=== PATIENT | female | born 1960 | race Native Hawaiian/Other Pacific Islander ===

== ENCOUNTER 2021-01-23 10:37 | Outpatient (CLI) | payer OTHER | END 2021-01-23 19:36 | disposition home or self-care (01) | LOC: MAMMO 10:37 | PROVIDERS: ATTEND Specialist | DX: N63.20 Unspecified lump in the left breast, unspecified quadrant (principal) | CPT/HCPCS: G0279 ==

== ENCOUNTER 2021-02-04 12:09 | Outpatient (CLI) | payer OTHER ==
[2021-02-04 12:36] LABS: PLATELET COUNT 251 K/uL (152-353)
[2021-02-04 12:42] LABS: POTASSIUM 3.4 mmol/L (3.6-5.2)
== END 2021-02-04 19:23 | disposition home or self-care (01) ==
LOC: LABW 12:09
PROVIDERS: ATTEND Internal Medicine Hematology & Oncology
DX: Z51.11 Encounter for antineoplastic chemotherapy (principal); C51.9 Malignant neoplasm of vulva, unspecified
CPT/HCPCS: 36415; 80053; 83735; 85027

== ENCOUNTER 2021-02-11 13:40 | Outpatient (CLI) | payer OTHER ==
[2021-02-11 13:58] LABS: PLATELET COUNT 240 K/uL (152-353)
== END 2021-02-11 22:17 | disposition home or self-care (01) ==
LOC: LABW 13:40
PROVIDERS: ATTEND Internal Medicine Hematology & Oncology
DX: Z51.11 Encounter for antineoplastic chemotherapy (principal); C51.9 Malignant neoplasm of vulva, unspecified
CPT/HCPCS: 36415; 80053; 83735; 85027

== ENCOUNTER 2021-02-18 12:33 | Outpatient (CLI) | payer OTHER ==
[2021-02-18 13:17] LABS: PLATELET COUNT 152 K/uL (152-353)
[2021-02-18 13:39] LABS: POTASSIUM 3.1 mmol/L (3.6-5.2)
== END 2021-02-18 20:49 | disposition home or self-care (01) ==
LOC: LABW 12:33
PROVIDERS: ATTEND Internal Medicine Hematology & Oncology
DX: Z51.11 Encounter for antineoplastic chemotherapy (principal); C51.9 Malignant neoplasm of vulva, unspecified
CPT/HCPCS: 80053; 83735; 85027

== ENCOUNTER 2021-02-25 14:08 | Outpatient (CLI) | payer OTHER ==
[2021-02-25 14:20] LABS: PLATELET COUNT 127 K/uL (152-353)
[2021-02-25 14:36] LABS: POTASSIUM 2.9 mmol/L (3.6-5.2)
== END 2021-02-25 21:40 | disposition home or self-care (01) ==
LOC: LABW 14:08
PROVIDERS: ATTEND Internal Medicine Hematology & Oncology
DX: Z51.11 Encounter for antineoplastic chemotherapy (principal); C51.9 Malignant neoplasm of vulva, unspecified
CPT/HCPCS: 36415; 80053; 83735; 85027

== ENCOUNTER 2021-03-04 14:14 | Outpatient (CLI) | payer OTHER ==
[2021-03-04 14:41] LABS: PLATELET COUNT 162 K/uL (152-353)
== END 2021-03-04 19:27 | disposition home or self-care (01) ==
LOC: LABW 14:14
PROVIDERS: ATTEND Internal Medicine Hematology & Oncology
DX: Z51.11 Encounter for antineoplastic chemotherapy (principal); C51.9 Malignant neoplasm of vulva, unspecified
CPT/HCPCS: 36415; 80053; 83735; 85027

== ENCOUNTER 2021-03-11 13:32 | Outpatient (CLI) | payer OTHER ==
[2021-03-11 13:45] LABS: PLATELET COUNT 164 K/uL (152-353)
[2021-03-11 14:26] LABS: POTASSIUM 2.7 mmol/L (3.6-5.2)
== END 2021-03-11 20:51 | disposition home or self-care (01) ==
LOC: LABW 13:32
PROVIDERS: ATTEND Internal Medicine Hematology & Oncology
DX: Z51.11 Encounter for antineoplastic chemotherapy (principal); C51.9 Malignant neoplasm of vulva, unspecified
CPT/HCPCS: 36415; 80053; 83735; 85027

== ENCOUNTER 2021-03-18 13:32 | Outpatient (CLI) | payer OTHER ==
[2021-03-18 14:03] LABS: PLATELET COUNT 129 K/uL (152-353)
[2021-03-18 14:25] LABS: POTASSIUM 4.1 mmol/L (3.6-5.2)
== END 2021-03-18 19:50 | disposition home or self-care (01) ==
LOC: LABW 13:32
PROVIDERS: ATTEND Internal Medicine Hematology & Oncology
DX: Z51.11 Encounter for antineoplastic chemotherapy (principal); C51.9 Malignant neoplasm of vulva, unspecified
CPT/HCPCS: 36415; 80053; 83735; 85027

== ENCOUNTER 2021-03-25 13:43 | Outpatient (CLI) | payer OTHER ==
[2021-03-25 13:58] LABS: PLATELET COUNT 123 K/uL (152-353)
[2021-03-25 14:07] LABS: POTASSIUM 3.5 mmol/L (3.6-5.2)
== END 2021-03-25 22:30 | disposition home or self-care (01) ==
LOC: LABW 13:43
PROVIDERS: ATTEND Internal Medicine Hematology & Oncology
DX: Z51.11 Encounter for antineoplastic chemotherapy (principal); C51.9 Malignant neoplasm of vulva, unspecified
CPT/HCPCS: 36415; 80053; 83735; 85027

== ENCOUNTER 2021-04-01 12:07 | Outpatient (CLI) | payer OTHER ==
[2021-04-01 12:49] LABS: PLATELET COUNT 132 K/uL (152-353)
[2021-04-01 13:37] LABS: POTASSIUM 3.2 mmol/L (3.6-5.2)
== END 2021-04-01 19:38 | disposition home or self-care (01) ==
LOC: LABW 12:07
PROVIDERS: ATTEND Internal Medicine Hematology & Oncology
DX: Z51.11 Encounter for antineoplastic chemotherapy (principal); C51.9 Malignant neoplasm of vulva, unspecified
CPT/HCPCS: 36415; 80053; 83735; 85027

== ENCOUNTER 2021-04-09 14:23 | Outpatient (CLI) | payer OTHER ==
[2021-04-09 14:58] LABS: POTASSIUM 3.1 mmol/L (3.6-5.2)
[2021-04-09 15:17] LABS: PLATELET COUNT 183 K/uL (152-353)
== END 2021-04-09 22:05 | disposition home or self-care (01) ==
LOC: LABW 14:23
PROVIDERS: ATTEND Internal Medicine Hematology & Oncology
DX: Z51.11 Encounter for antineoplastic chemotherapy (principal); C51.9 Malignant neoplasm of vulva, unspecified
CPT/HCPCS: 36415; 80053; 83735; 85027

== ENCOUNTER 2021-04-15 13:39 | Outpatient (CLI) | payer OTHER ==
[2021-04-15 13:51] LABS: PLATELET COUNT 286 K/uL (152-353)
[2021-04-15 14:03] LABS: POTASSIUM 2.7 mmol/L (3.6-5.2)
== END 2021-04-15 19:56 | disposition home or self-care (01) ==
LOC: LABW 13:39
PROVIDERS: ATTEND Internal Medicine Hematology & Oncology
DX: Z51.11 Encounter for antineoplastic chemotherapy (principal); C51.9 Malignant neoplasm of vulva, unspecified
CPT/HCPCS: 36415; 80053; 83735; 85027

== ENCOUNTER 2021-04-19 10:50 | Outpatient (CLI) | payer OTHER | END 2021-04-19 22:19 | disposition home or self-care (01) | LOC: CT 10:50 | PROVIDERS: ATTEND Internal Medicine Hematology & Oncology | DX: C51.9 Malignant neoplasm of vulva, unspecified (principal) | CPT/HCPCS: 36415; 82565; 84520; Q9963 ==

== ENCOUNTER 2021-04-22 11:16 | Outpatient (CLI) | payer OTHER ==
[2021-04-22 11:35] LABS: PLATELET COUNT 249 K/uL (152-353)
[2021-04-22 11:56] LABS: POTASSIUM 3.4 mmol/L (3.6-5.2)
== END 2021-04-22 21:00 | disposition home or self-care (01) ==
LOC: LABW 11:16
PROVIDERS: ATTEND Internal Medicine Hematology & Oncology
DX: C51.9 Malignant neoplasm of vulva, unspecified (principal); Z51.11 Encounter for antineoplastic chemotherapy
CPT/HCPCS: 36415; 80053; 83735; 85027

== ENCOUNTER 2021-04-29 15:20 | Outpatient (CLI) | payer OTHER ==
[2021-04-29 15:37] LABS: PLATELET COUNT 180 K/uL (152-353)
[2021-04-29 15:50] LABS: POTASSIUM 3.7 mmol/L (3.6-5.2)
== END 2021-04-29 19:08 | disposition home or self-care (01) ==
LOC: LABW 15:20
PROVIDERS: ATTEND Internal Medicine Hematology & Oncology
DX: C51.9 Malignant neoplasm of vulva, unspecified (principal); Z51.11 Encounter for antineoplastic chemotherapy
CPT/HCPCS: 36415; 80053; 83735; 85027

== ENCOUNTER 2021-05-06 10:17 | Outpatient (CLI) | payer OTHER ==
[2021-05-06 10:41] LABS: POTASSIUM 3.1 mmol/L (3.6-5.2)
[2021-05-06 10:56] LABS: PLATELET COUNT 198 K/uL (152-353)
== END 2021-05-06 21:46 | disposition home or self-care (01) ==
LOC: LABW 10:17
PROVIDERS: ATTEND Internal Medicine Hematology & Oncology
DX: C51.9 Malignant neoplasm of vulva, unspecified (principal); Z51.11 Encounter for antineoplastic chemotherapy
CPT/HCPCS: 36415; 80053; 83735; 85027

== ENCOUNTER → 2021-08-14 | Outpatient (CLI) | payer OTHER ==
[2021-08-14 09:05] LABS: PLATELET COUNT 263 K/uL (152-353)
[2021-08-14 09:33] LABS: POTASSIUM 2.7 mmol/L (3.6-5.2)
== END ==
LOC: LABW 08:46
PROVIDERS: ATTEND Internal Medicine
DX: N18.31 Chronic kidney disease, stage 3a (principal); R53.83 Other fatigue
CPT/HCPCS: 36415; 80053; 81000; 82306; 82330; 82570; 82607; 82728; 82746; 83036; 83540; 83550; 83735; 83970; 84100; 84155; 84439; 84443; 85027; 85652; 86038

== ENCOUNTER 2021-08-23 09:11 | Outpatient (CLI) | payer OTHER | END 2021-08-23 21:41 | disposition home or self-care (01) | LOC: US 09:11 | PROVIDERS: ATTEND Internal Medicine | DX: N18.31 Chronic kidney disease, stage 3a (principal) ==

== ENCOUNTER 2021-10-25 19:01 | Emergency (ER) | payer OTHER ==
[~2021-10-25] VITALS: Ht 152.4 cm; Wt 63.5 kg
[2021-10-25 20:20] VITALS: BP 134/78; TEMP 98
== END 2021-10-25 20:20 | disposition home or self-care (01) ==
LOC: ED 19:01
DX: B02.9 Zoster without complications (principal)
CPT/HCPCS: 96372; 99283; J1100; J1170; J2405